=== PATIENT | male | born 1950 | race Caucasian/White ===

== ENCOUNTER → 2018-05-16 | Outpatient (CLI) | payer MEDICARE ==
[~2018-05-16] MED LIST: ANXIETY MEDICATION; ASPIR 8181 MG PO; DIOVAN HCT 1601 EAC1 PO; DIOVAN HCT 3201 EAC1 PO; Lexapro PO; Lipitor PO; METOPROLOL SUCC25 MG PO; Tylenol # 4 PO; XANAX0.5 MG PO
--- NOTE | 2018-05-16 13:03 | Diagnostic Imaging Report ---
Right Shoulder - 2 views HISTORY: Pain COMPARISON: None FINDINGS: Bones: There is adequate internal and external rotation. No acute displaced fracture. Osseous alignment is within normal limits. Joints: Mild joint space narrowing of the glenohumeral and acromioclavicular joints. Soft tissues: The soft tissues appear unremarkable. IMPRESSION: No acute radiographic abnormality. 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 Signed by: Dr. Xiao Durbin MD on 05/16/2018 1:00 PM
== END ==
LOC: RAD 11:29
PROVIDERS: ATTEND General Practice
DX: M25.511 Pain in right shoulder (principal)